=== PATIENT | male | born 1985 | race Caucasian/White ===

== ENCOUNTER 2016-08-12 20:34 | Inpatient (IN) | payer OTHER ==
[2016-08-12 21:02] VITALS: BMI 21.1
--- NOTE | 2016-08-12 22:12 | HP ---
CIWA Score - CIWA Score Nausea/Vomitin-Mild Nausea/No Vomiting Muscle Tremors: 4-Moderate,w/Arms Extend Anxiety: 4-Mod. Anxious/Guarded Agitation: 2 Paroxysmal Sweats: 2 Orientation: 1-Uncertain about Date Tacttile Disturbances: 0-None Auditory Disturbances: 0-None Visual Disturbances: 0-None Headache: 2-Mild CIWA-Ar Total Score: 16 Admission ROS BHS - HPI Chief Complaint: withdrawal sx Allergies/Adverse Reactions: Allergies Allergy/AdvReac Type Severity Reaction Status Date / Time No Known Allergies Allergy Verified 08/12/16 22:07 History of Present Illness: 30 years old male with long history of alcohol cocaine nicotine dependence, has gerd denies mental illness is admitted to detox Exam Limitations: No Limitations - Ebola screening Have you traveled outside of the country in the last 21 days: No (N) Have you had contact with anyone from an Ebola affected area: No Have you been sick,other than usual withdrawal symptoms: No Do you have a fever: No - Review of Systems Constitutional: Chills, Loss of Appetite, Changes in sleep, Unexplained wgt Loss EENT: reports: Dental Problems (few teeth missing) Respiratory: reports: No Symptoms reported Cardiac: reports: No Symptoms Reported GI: reports: Nausea, Poor Appetite, Poor Fluid Intake, Indigestion, Abdominal cramping : reports: No Symptoms Reported Musculoskeletal: reports: Back Pain, Joint Pain, Muscle Pain, Neck Pain (left knee) Integumentary: reports: No Symptoms Reported Neuro: reports: Tremors Endocrine: reports: No Symptoms Reported Hematology: reports: No Symptoms Reported Psychiatric: reports: Judgement Intact, Mood/Affect Appropiate Other Systems: Reviewed and Negative Patient History - Patient Medical History Hx Anemia: No Hx Asthma: No Hx Chronic Obstructive Pulmonary Disease (COPD): No Hx Cancer: No Hx Cardiac Disorders: No Hx Congestive Heart Failure: No Hx Hypertension: No Hx Hypercholesterolemia: No Hx Pacemaker: No HX Cerebrovascular Accident: No Hx Seizures: No Hx Dementia: No Hx Diabetes: No Hx Gastrointestinal Disorders: Yes Hx Liver Disease: No Hx Genitourinary Disorders: No Hx Sexually Transmitted Disorders: No Hx Renal Disease (ESRD): No Hx Thyroid Disease: No Hx Human Immunodeficiency Virus (HIV): No Hx Hepatitis C: No Hx Depression: No Hx Suicide Attempt: No Hx Bipolar Disorder: No Hx Schizophrenia: No - Patient Surgical History Past Surgical History: Yes Hx Orthopedic Surgery: Yes (left knee 20 years old and 28 years old) Anesthesia Reaction: No - PPD History Previous Implant?: Yes Documented Results: Negative w/o proof Implanted On Prior [facility] Admission?: No PPD to be Administered?: Yes - Smoking Cessation Smoking history: Current every day smoker Have you smoked in the past 12 months: Yes Aproximately how many cigarettes per day: 20 Cigars Per Day: 0 Hx Chewing Tobacco Use: No Initiated information on smoking cessation: Yes 'Breaking Loose' booklet given: 08/12/16 - Substance & Tx. History Hx Alcohol Use: Yes Hx Substance Use: No Substance Use Type: Alcohol, Cocaine Hx Substance Use Treatment: Yes - Substances Abused Alcohol Route: Oral Frequency: Daily Amount used: pint volka Age of first use: 16 Date of Last Use: 08/12/16 Family Disease History - Family Disease History Family Disease History: Diabetes: Grandparent, Other: Grandparent Admission Physical Exam BHS - Vital Signs Vital Signs: Vital Signs - 24 hr 08/12/16 20:58 Temperature 98.3 F Pulse Rate 88 Respiratory 20 Rate Blood Pressure 127/72 - Physical General Appearance: Yes: Appropriately Dressed, Mild Distress, Alcohol on Breath , Thin, Tremorous, Irritable, Sweating, Anxious HEENTM: Yes: Hearing grossly Normal, Normal ENT Inspection, Normocephalic, Normal Voice Respiratory: Yes: Chest Non-Tender, Lungs Clear, Normal Breath Sounds, No Respiratory Distress, No Accessory Muscle Use Neck: Yes: Supple, Trachea in good position Breast: Yes: Breasts Symetrical Cardiology: Yes: Regular Rhythm, Regular Rate, S1, S2 Abdominal: Yes: Non Tender, Soft Genitourinary: Yes: Within Normal Limits Back: Yes: Normal Inspection Musculoskeletal: Yes: full range of Motion, Gait Steady, Muscle Pain (left knee) Extremities: Yes: Normal Range of Motion, Non-Tender, Tremors Neurological: Yes: Alert, Motor Strength 5/5, Normal Mood/Affect, Normal Response Integumentary: Yes: Warm, Moist Lymphatic: Yes: Within Normal Limits - Diagnostic (1) Alcohol dependence with uncomplicated withdrawal Current Visit: Yes Status: Acute (2) GERD (gastroesophageal reflux disease) Current Visit: Yes Status: Acute Qualifiers: Esophagitis presence: without esophagitis Qualified Code(s): K21.9 - Gastro-esophageal reflux disease without esophagitis (3) Nicotine dependence Current Visit: Yes Status: Acute Qualifiers: Nicotine product type: cigarettes Substance use status: in withdrawal Qualified Code(s): F17.213 - Nicotine dependence, cigarettes, with withdrawal (4) Weight loss Current Visit: Yes Status: Acute Cleared for Admission [facility] - Detox or Rehab [facility] Level of Care: Medically Managed Detox Regimen/Protocol: Librium S Breath Alcohol Content Breath Alcohol Content: 0.106 Urine Drug Screen - Results Drug Screen Negative: No Urine Drug Screen Results: YEHUDA-Cocaine
[2016-08-12] MEDS ORDERED: LOPERAMIDE HCL 2 MG CAPSULE PO PRN (22:15)
[2016-08-12] MEDS ORDERED: MAG HYDROX/AL HYDROX/SIMETH 30 ML UNIT-DOSE CUP PO PRN (22:15)
[2016-08-12] MEDS ORDERED: hydrOXYzine PAMOATE 50 MG CAPSULE (FP) PO PRN (22:15)
[2016-08-12] MEDS ORDERED: P-EPHED 60MG/TRIPROLIDI 2.5MG TABLET PO PRN (22:15)
[2016-08-12] MEDS ORDERED: chlordiazePOXIDE HCL 25 MG CAPSULE PO PRN (22:15)
[2016-08-12] MEDS ORDERED: guaiFENesin/D-METHORPHAN HB 10 ML UNIT-DOSE CUPS PO PRN (22:15)
[2016-08-12 22:54] LABS: URINE APPEARANCE CLEAR; URINE BILIRUBIN NEGATIVE (NEGATIVE); URINE COLOR LTYELLOW; URINE GLUCOSE (UA) NEGATIVE (NEGATIVE); URINE KETONE NEGATIVE (NEGATIVE); URINE LEUK ESTERASE NEGATIVE (NEGATIVE); URINE NITRITE NEGATIVE (NEGATIVE); URINE PROTEIN NEGATIVE (NEGATIVE); URINE UROBILINOGEN NEGATIVE E.U./dl (0.2-1.0)
[2016-08-12] MEDS: diphenhydrAMINE HCL 50 MG CAPSULE PO PRN (22:54)
[2016-08-12] MEDS: chlordiazePOXIDE HCL 25 MG CAPSULE PO SCH (22:54)
[2016-08-12] MEDS: ACETAMINOPHEN 325 MG TABLET (FP) PO PRN (22:55)
[2016-08-12 22:56] LABS: URINE BLOOD 1+ (NEGATIVE)
[2016-08-12 22:59] LABS: URINE HYALINE CAST 1 /lpf; URINE MUCUS RARE; URINE WBC <1 /hpf (3-5)
[2016-08-13] MEDS: chlordiazePOXIDE HCL 25 MG CAPSULE PO SCH ×4 (05:42→22:03)
[2016-08-13 09:57] LABS: MCH 31.9 pg (25.7-33.7); MCHC 33.6 g/dl (32.0-35.9); MEAN CELL VOLUME 95.1 fl (80-96); PLATELET COUNT 189 K/MM3 (134-434); RDW 13.3 % (11.9-15.9); WHITE BLOOD COUNT 9.9 K/mm3 (4.0-10.0)
[2016-08-13 10:14] LABS: ALBUMIN 3.7 g/dl (3.4-5.0); ALK PHOS 68 U/L (45-117); ANION GAP 9 (8-16); BILIRUBIN,TOTAL 0.1 mg/dL (0.2-1.0); CALCIUM 9.3 mg/dL (8.5-10.1); CO2 28 mmol/L (21-32); GLUCOSE,RANDOM 84 mg/dL (74-106); SGOT/AST 28 U/L (15-37); SGPT/ALT 28 U/L (12-78); TOT PROT 6.8 g/dl (6.4-8.2)
[2016-08-13] MEDS: RANITIDINE HCL 150 MG TABLET (FP) PO SCH ×2 (10:14→22:03)
[2016-08-13] MEDS: NICOTINE POLACRILEX 2 MG GUM BUC PRN ×3 (10:15→17:16)
[2016-08-13] MEDS: NICOTINE 21 MG/24 HOURS TOPICAL PATCH TD SCH (10:16)
[2016-08-13] MEDS: PRENATAL VITAMINS W/ FOLIC ACID TABLET (FP) PO SCH (10:16)
--- NOTE | 2016-08-13 10:46 | EKG ---
Test Reason : Blood Pressure : / mmHG Vent. Rate : 074 BPM Atrial Rate : 074 BPM P-R Int : 134 ms QRS Dur : 088 ms QT Int : 534 ms P-R-T Axes : 062 077 075 degrees QTc Int : 592 ms NORMAL SINUS RHYTHM WITH SINUS ARRHYTHMIA PROLONGED QT ABNORMAL ECG NO PREVIOUS ECGS AVAILABLE Confirmed by JAYDON HAMM, LUIS ([id number]) on 08/13/2016 10:45:53 AM Referred By: Confirmed By:LUIS INTERIANO MD
[2016-08-13] MEDS ORDERED: LIDOCAINE 5% TOPICAL PATCH TP ONE (11:58)
--- NOTE | 2016-08-13 11:58 | PN ---
[facility] CIWA - CIWA Score Nausea/Vomitin Muscle Tremors: 3 Anxiety: 3 Agitation: 2 Paroxysmal Sweats: 3 Orientation: 0-Oriented Tacttile Disturbances: 2-Mild Itch/Numbness/Burn Auditory Disturbances: 0-None Visual Disturbances: 0-None Headache: 0-None Present CIWA-Ar Total Score: 16 BHS Progress Note (SOAP) Subjective: interrupted sleep, sweats, shakes, nausea Objective: 08/13/16 11:57 Vital Signs Temperature 97 F L 08/13/16 10:06 Pulse Rate 81 08/13/16 10:06 Respiratory Rate 18 08/13/16 10:06 Blood Pressure 146/52 08/13/16 10:06 O2 Sat by Pulse Oximetry (%) Laboratory Tests 08/12/16 08/13/16 08/13/16 22:40 07:00 07:00 WBC 9.9 RBC 4.60 Hgb 14.7 Hct 43.7 MCV 95.1 MCHC 33.6 RDW 13.3 Plt Count 189 MPV 9.0 Sodium 142 Potassium 3.9 Chloride 105 Carbon Dioxide 28 Anion Gap 9 BUN 17 Creatinine 1.0 Creat Clearance w eGFR > 60 Random Glucose 84 Calcium 9.3 Total Bilirubin 0.1 L AST 28 ALT 28 Alkaline Phosphatase 68 Total Protein 6.8 Albumin 3.7 Urine Color Ltyellow Urine Appearance Clear Urine pH 5.0 Ur Specific [place] 1.015 Urine Protein Negative Urine Glucose (UA) Negative Urine Ketones Negative Urine Blood 1+ H Urine Nitrite Negative Urine Bilirubin Negative Urine Urobilinogen Negative Ur Leukocyte Esterase Negative Urine RBC None Urine WBC <1 Hyaline Casts 1 Urine Mucus Rare pt aox3 in nad ambulating 08/13/16 11:59 Assessment: 08/13/16 11:57 withdrawl sx;s knee pain 08/13/16 11:59 Plan: cont. detrox increase fluids lidocaine patch motrin prn
[2016-08-13] MEDS: IBUPROFEN 400 MG TABLET (FP) PO PRN (18:13)
[2016-08-13] MEDS: CYCLOBENZAPRINE HCL 10 MG TABLET (FP) PO PRN (18:15)
[2016-08-13] MEDS: THIAMINE HCL 100 MG TABLET (FP) PO SCH (22:03)
[2016-08-14] MEDS: chlordiazePOXIDE HCL 25 MG CAPSULE PO SCH ×3 (06:39→17:30)
[2016-08-14] MEDS: LIDOCAINE 5% TOPICAL PATCH TP SCH (10:30)
[2016-08-14] MEDS: NICOTINE 21 MG/24 HOURS TOPICAL PATCH TD SCH (10:30)
[2016-08-14] MEDS: RANITIDINE HCL 150 MG TABLET (FP) PO SCH ×2 (10:32→22:58)
[2016-08-14] MEDS: IBUPROFEN 400 MG TABLET (FP) PO PRN ×2 (10:32→18:30)
[2016-08-14] MEDS: CYCLOBENZAPRINE HCL 10 MG TABLET (FP) PO PRN ×2 (10:32→18:31)
[2016-08-14] MEDS: PRENATAL VITAMINS W/ FOLIC ACID TABLET (FP) PO SCH (10:33)
--- NOTE | 2016-08-14 10:34 | PN ---
[facility] CIWA - CIWA Score Nausea/Vomitin-No Nausea/No Vomiting Muscle Tremors: 4-Moderate,w/Arms Extend Anxiety: 4-Mod. Anxious/Guarded Agitation: 3 Paroxysmal Sweats: 3 Orientation: 0-Oriented Tacttile Disturbances: 0-None Auditory Disturbances: 0-None Visual Disturbances: 0-None Headache: 1-Very Mild CIWA-Ar Total Score: 15 BHS Progress Note (SOAP) Subjective: shakes sweats body aches headache Objective: 08/14/16 10:33 Vital Signs Temperature 95.5 F L 08/14/16 10:16 Pulse Rate 71 08/14/16 10:16 Respiratory Rate 16 08/14/16 10:16 Blood Pressure 128/77 08/14/16 10:16 O2 Sat by Pulse Oximetry (%) Laboratory Tests 08/12/16 08/13/16 08/13/16 22:40 07:00 07:00 WBC 9.9 RBC 4.60 Hgb 14.7 Hct 43.7 MCV 95.1 MCHC 33.6 RDW 13.3 Plt Count 189 MPV 9.0 Sodium 142 Potassium 3.9 Chloride 105 Carbon Dioxide 28 Anion Gap 9 BUN 17 Creatinine 1.0 Creat Clearance w eGFR > 60 Random Glucose 84 Calcium 9.3 Total Bilirubin 0.1 L AST 28 ALT 28 Alkaline Phosphatase 68 Total Protein 6.8 Albumin 3.7 Urine Color Ltyellow Urine Appearance Clear Urine pH 5.0 Ur Specific [place] 1.015 Urine Protein Negative Urine Glucose (UA) Negative Urine Ketones Negative Urine Blood 1+ H Urine Nitrite Negative Urine Bilirubin Negative Urine Urobilinogen Negative Ur Leukocyte Esterase Negative Urine RBC None Urine WBC <1 Hyaline Casts 1 Urine Mucus Rare RPR Titer 08/13/16 07:00 WBC RBC Hgb Hct MCV MCHC RDW Plt Count MPV Sodium Potassium Chloride Carbon Dioxide Anion Gap BUN Creatinine Creat Clearance w eGFR Random Glucose Calcium Total Bilirubin AST ALT Alkaline Phosphatase Total Protein Albumin Urine Color Urine Appearance Urine pH Ur Specific [place] Urine Protein Urine Glucose (UA) Urine Ketones Urine Blood Urine Nitrite Urine Bilirubin Urine Urobilinogen Ur Leukocyte Esterase Urine RBC Urine WBC Hyaline Casts Urine Mucus RPR Titer Nonreactive awake/alert ambulating no acute distress Assessment: 08/14/16 10:33 withdrawal sx Plan: continue detox increase fluids motrin prn
[2016-08-14] MEDS: NICOTINE POLACRILEX 2 MG GUM BUC PRN ×3 (11:15→19:54)
[2016-08-14] MEDS: ACETAMINOPHEN 325 MG TABLET (FP) PO PRN (14:18)
[2016-08-14] MEDS: THIAMINE HCL 100 MG TABLET (FP) PO SCH (22:58)
[2016-08-14] MEDS: chlordiazePOXIDE 5 MG CAPSULE PO SCH (22:58)
[2016-08-14] MEDS: diphenhydrAMINE HCL 50 MG CAPSULE PO PRN (22:59)
[2016-08-15] MEDS: chlordiazePOXIDE 5 MG CAPSULE PO SCH ×3 (05:51→17:37)
[2016-08-15] MEDS: IBUPROFEN 400 MG TABLET (FP) PO PRN ×2 (05:54→18:28)
[2016-08-15] MEDS: LIDOCAINE 5% TOPICAL PATCH TP SCH (10:15)
[2016-08-15] MEDS: NICOTINE 21 MG/24 HOURS TOPICAL PATCH TD SCH (10:15)
[2016-08-15] MEDS: CYCLOBENZAPRINE HCL 10 MG TABLET (FP) PO PRN ×2 (10:16→18:27)
[2016-08-15] MEDS: PRENATAL VITAMINS W/ FOLIC ACID TABLET (FP) PO SCH (10:16)
[2016-08-15] MEDS: RANITIDINE HCL 150 MG TABLET (FP) PO SCH ×2 (10:17→22:06)
[2016-08-15] MEDS: NICOTINE POLACRILEX 2 MG GUM BUC PRN ×3 (10:18→17:37)
--- NOTE | 2016-08-15 12:10 | PN ---
BHS Progress Note (SOAP) Subjective: interrupted sleep, sweats, nausea Objective: 08/15/16 12:09 Vital Signs Temperature 96.4 F L 08/15/16 09:28 Pulse Rate 78 08/15/16 09:28 Respiratory Rate 16 08/15/16 09:28 Blood Pressure 103/78 08/15/16 09:28 O2 Sat by Pulse Oximetry (%) Laboratory Tests 08/12/16 08/13/16 08/13/16 22:40 07:00 07:00 WBC 9.9 RBC 4.60 Hgb 14.7 Hct 43.7 MCV 95.1 MCHC 33.6 RDW 13.3 Plt Count 189 MPV 9.0 Sodium 142 Potassium 3.9 Chloride 105 Carbon Dioxide 28 Anion Gap 9 BUN 17 Creatinine 1.0 Creat Clearance w eGFR > 60 Random Glucose 84 Calcium 9.3 Total Bilirubin 0.1 L AST 28 ALT 28 Alkaline Phosphatase 68 Total Protein 6.8 Albumin 3.7 Urine Color Ltyellow Urine Appearance Clear Urine pH 5.0 Ur Specific [place] 1.015 Urine Protein Negative Urine Glucose (UA) Negative Urine Ketones Negative Urine Blood 1+ H Urine Nitrite Negative Urine Bilirubin Negative Urine Urobilinogen Negative Ur Leukocyte Esterase Negative Urine RBC None Urine WBC <1 Hyaline Casts 1 Urine Mucus Rare RPR Titer 08/13/16 07:00 WBC RBC Hgb Hct MCV MCHC RDW Plt Count MPV Sodium Potassium Chloride Carbon Dioxide Anion Gap BUN Creatinine Creat Clearance w eGFR Random Glucose Calcium Total Bilirubin AST ALT Alkaline Phosphatase Total Protein Albumin Urine Color Urine Appearance Urine pH Ur Specific [place] Urine Protein Urine Glucose (UA) Urine Ketones Urine Blood Urine Nitrite Urine Bilirubin Urine Urobilinogen Ur Leukocyte Esterase Urine RBC Urine WBC Hyaline Casts Urine Mucus RPR Titer Nonreactive pt aox3 in nad ambulating Assessment: 08/15/16 12:10 withdrawl sx's Plan: cont. detox increase fluids d/c in am
[2016-08-15] MEDS: diphenhydrAMINE HCL 50 MG CAPSULE PO PRN (22:06)
[2016-08-15] MEDS: chlordiazePOXIDE HCL 10 MG CAPSULE PO SCH (22:06)
[2016-08-15] MEDS: THIAMINE HCL 100 MG TABLET (FP) PO SCH (22:06)
[2016-08-15 23:10] VITALS: TEMP 97.5
[2016-08-16] MEDS: chlordiazePOXIDE HCL 10 MG CAPSULE PO SCH (07:00)
[2016-08-16 07:04] VITALS: BP 102/65; PULSE 73
--- NOTE | 2016-08-16 12:36 | DS ---
[facility] Detox Discharge Summary Admission Date: 08/12/16 Discharge Date: 08/16/16 - History Present History: Alcohol Dependence Additional Comments: ADVISED PATIENT TO FOLLOW-UP WITH [employer] AFTER DISCHARGE FROM DETOX FOR GENERAL MEDICAL ASSESSMENT. Pertinent Past History: GERD. - Physical Exam Results Vital Signs: Vital Signs Temperature 97.5 F L 08/16/16 06:00 Pulse Rate 73 08/16/16 06:00 Respiratory Rate 18 08/16/16 06:00 Blood Pressure 102/65 08/16/16 06:00 O2 Sat by Pulse Oximetry (%) Pertinent Admission Physical Exam Findings: WITHDRAWAL SYMPTOMS. Laboratory Last Values WBC 9.9 K/mm3 (4.0-10.0) 08/13/16 07:00 RBC 4.60 M/mm3 (4.00-5.60) 08/13/16 07:00 Hgb 14.7 GM/dL (11.7-16.9) 08/13/16 07:00 Hct 43.7 % (35.4-49) 08/13/16 07:00 MCV 95.1 fl (80-96) 08/13/16 07:00 MCHC 33.6 g/dl (32.0-35.9) 08/13/16 07:00 RDW 13.3 % (11.9-15.9) 08/13/16 07:00 Plt Count 189 K/MM3 (134-434) 08/13/16 07:00 MPV 9.0 fl (7.5-11.1) 08/13/16 07:00 Sodium 142 mmol/L (136-145) 08/13/16 07:00 Potassium 3.9 mmol/L (3.5-5.1) 08/13/16 07:00 Chloride 105 mmol/L (98-107) 08/13/16 07:00 Carbon Dioxide 28 mmol/L (21-32) 08/13/16 07:00 Anion Gap 9 (8-16) 08/13/16 07:00 BUN 17 mg/dL (7-18) 08/13/16 07:00 Creatinine 1.0 mg/dL (0.7-1.3) 08/13/16 07:00 Creat Clearance w eGFR > 60 (>60) 08/13/16 07:00 Random Glucose 84 mg/dL (74-106) 08/13/16 07:00 Calcium 9.3 mg/dL (8.5-10.1) 08/13/16 07:00 Total Bilirubin 0.1 mg/dL (0.2-1.0) L 08/13/16 07:00 AST 28 U/L (15-37) 08/13/16 07:00 ALT 28 U/L (12-78) 08/13/16 07:00 Alkaline Phosphatase 68 U/L (45-117) 08/13/16 07:00 Total Protein 6.8 g/dl (6.4-8.2) 08/13/16 07:00 Albumin 3.7 g/dl (3.4-5.0) 08/13/16 07:00 Urine Color Ltyellow 08/12/16 22:40 Urine Appearance Clear 08/12/16 22:40 Urine pH 5.0 (5.0-8.0) 08/12/16 22:40 Ur Specific [place] 1.015 (1.001-1.035) 08/12/16 22:40 Urine Protein Negative (NEGATIVE) 08/12/16 22:40 Urine Glucose (UA) Negative (NEGATIVE) 08/12/16 22:40 Urine Ketones Negative (NEGATIVE) 08/12/16 22:40 Urine Blood 1+ (NEGATIVE) H 08/12/16 22:40 Urine Nitrite Negative (NEGATIVE) 08/12/16 22:40 Urine Bilirubin Negative (NEGATIVE) 08/12/16 22:40 Urine Urobilinogen Negative E.U./dl (0.2-1.0) 08/12/16 22:40 Ur Leukocyte Esterase Negative (NEGATIVE) 08/12/16 22:40 Urine RBC None /hpf (0-3) 08/12/16 22:40 Urine WBC <1 /hpf (3-5) 08/12/16 22:40 Hyaline Casts 1 /lpf 08/12/16 22:40 Urine Mucus Rare 08/12/16 22:40 RPR Titer Nonreactive (NONREACTIVE) 08/13/16 07:00 LABS NOTED. - Treatment Hospital Course: Detox Protocol Followed, Detoxed Safely, Responded well, Discharged Condition Good - Medication Discharge Medications: Ambulatory Orders NK [No Known Home Medication] 08/12/16 - Diagnosis (1) Alcohol dependence with uncomplicated withdrawal Status: Acute (2) GERD (gastroesophageal reflux disease) Status: Acute Qualifiers: Esophagitis presence: without esophagitis Qualified Code(s): K21.9 - Gastro-esophageal reflux disease without esophagitis (3) Nicotine dependence Status: Acute Qualifiers: Nicotine product type: cigarettes Substance use status: in withdrawal Qualified Code(s): F17.213 - Nicotine dependence, cigarettes, with withdrawal (4) Weight loss Status: Acute - AMA Did Patient Leave Against Medical Advice: No
== END 2016-08-16 08:55 | disposition home or self-care (01) | DRG 775 ==
LOC: YASAS 20:34 → Y6N 22:05
PROVIDERS: ADMIT Internal Medicine; ATTEND Internal Medicine
PROC: HZ2ZZZZ Detoxification Services for Substance Abuse Treatment (ICD-10-PCS; principal; 2016-08-16)
DX: F10.230 Alcohol dependence with withdrawal, uncomplicated (principal); F17.213 Nicotine dependence, cigarettes, with withdrawal; K21.9 Gastro-esophageal reflux disease without esophagitis; R63.4 Abnormal weight loss; Z68.21 Body mass index [BMI] 21.0-21.9, adult
CPT/HCPCS: 36415; 80053; 81003; 81015; 85027; 86593; 93005; 93010